=== PATIENT | female | born 1945 | race Caucasian/White ===

== ENCOUNTER 2016-09-12 14:03 | Emergency (ER) | payer MEDICARE ==
[2016-09-12 14:44] VITALS: BP 104/62
--- NOTE | 2016-09-12 16:02 | UC ---
[facility] HPI - HPI Summary HPI Summary: FOUR DAYS OF FRONT LOWER DENTAL PAIN. NO FEVER. - History of Current Complaint Chief Complaint: UCDentalProblem Stated Complaint: DENTAL PAIN Time Seen by Provider: 09/12/16 14:49 Hx Obtained From: Patient Hx Last Menstrual Period: NA Onset/Duration: Gradual Onset, Lasting Days, Still Present Severity: Mild Pain Intensity: 4 Pain Scale Used: 0-10 Numeric Aggravating: Chewing Alleviating: Nothing Related History: Previous Dental Care on Same Tooth - DENTURES - Allergies/Home Medications Allergies/Adverse Reactions: Allergies Allergy/AdvReac Type Severity Reaction Status Date / Time Codeine Allergy Unknown Verified 03/31/13 10:17 Reaction Details Sulfa Antibiotics Allergy Unknown Verified 03/31/13 10:17 Reaction Details PMH/Surg Hx/FS Hx/Imm Hx Previously Healthy: Yes Endocrine History Of: Reports: Diabetes - TYPE 2, Thyroid Disease - HYPOTHYROID Cardiovascular History Of: Denies: Hypertension, Pacemaker/ICD GI/ History Of: Comment Only: 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 [place]ALLBLAD[place], , 1989 CAT[place]ACT[place]. [place]ST[place]CTOMY, , [place]. LEFT WRIST, 1979. VERICOSE VEIN STRIPPING AUG 2013. LEFT BREAST CYST, . CARPAL TUNNEL [place], 1999. LEFT KNEE, 1999, [facility] - Family History Known Family History: Positive: Diabetes, Other - depression - Social History Occupation: Retired Lives: With Family Alcohol Use: Occasionally Substance Use Type: None Smoking Status (MU): Former Smoker Review of Systems Constitutional: Negative Skin: Negative Eyes: Negative ENT: Dental Pain Respiratory: Negative Cardiovascular: Negative Gastrointestinal: Negative Genitourinary: Negative Motor: Negative Neurovascular: Negative Musculoskeletal: Negative Neurological: Negative Psychological: Negative All Other Systems Reviewed And Are Negative: Yes Physical Exam Triage Information Reviewed: Yes Completion Of Physical Exam Limited Due To: Extremis Appearance: No Pain Distress, Well-Nourished Vital Signs: Initial Vital Signs Temp 97.8 F 09/12/16 14:42 Pulse 99 09/12/16 14:42 Resp 16 09/12/16 14:42 BP 104/62 09/12/16 14:42 Pulse Ox 95 09/12/16 14:42 Vital Signs Reviewed: Yes Eye Exam: Normal Eyes: Positive: Conjunctiva Clear ENT Exam: Normal ENT: Positive: Normal ENT inspection, Hearing grossly normal, Pharynx normal, TMs normal Dental: Positive: Abscess @ - #24,25 Neck exam: Normal Neck: Positive: Supple, Nontender, No Lymphadenopathy Respiratory Exam: Normal Respiratory: Positive: Chest non-tender, Lungs clear, Normal breath sounds, No respiratory distress, No accessory muscle use Cardiovascular Exam: Normal Cardiovascular: Positive: RRR, No Murmur, Pulses Normal Abdominal Exam: Normal Abdomen Description: Positive: Nontender, No Organomegaly Musculoskeletal Exam: Normal Musculoskeletal: Positive: Strength Intact Neurological Exam: Normal Psychological Exam: Normal Skin Exam: Normal Dental Complaint Course/Dx - Differential Dx/Diagnosis Differential Diagnosis/Dx: Dental Abscess, Dental Caries, Odontogenic Pain Provider Diagnoses: DENTAL ABSCESS #24,25 Discharge - Discharge Plan Condition: Stable Disposition: HOME Prescriptions: Amoxicillin/Clavulanate TAB* [Augmentin TAB 875*] 875 mg PO BID #20 tab Patient Education Materials: Dental Abscess (ED) Referrals: Moses Nova MD [Primary Care Provider] - Additional Instructions: DENTAL REFERRAL SHEET GIVEN Images Dental: 1 - TENDER AND SWOLLEN HERE
== END 2016-09-12 15:11 | disposition home or self-care (01) ==
LOC: UCEAST 14:03
DX: K04.7 Periapical abscess without sinus (principal); Z88.5 Allergy status to narcotic agent; Z88.2 Allergy status to sulfonamides; Z87.891 Personal history of nicotine dependence; Q60.0 Renal agenesis, unilateral
CPT/HCPCS: 99212; G0463

== ENCOUNTER 2016-11-16 15:43 | Emergency (ER) | payer MEDICARE ==
[2016-11-16 16:05] VITALS: BP 116/88
--- NOTE | 2016-11-16 17:11 | UC ---
Abdominal Pain Female HPI - HPI Summary HPI Summary: Had mild diarrhea 3-4 times per day starting 2 weeks ago, much worse 4 days ago with lots of cramping and nausea s vomiting. Took amoxicillin and then PCN for a toothache that ended 2 days ago, says that she started abx prior to diarrhea. Has not eaten today but is drinking fluids well. Today when she tries to urinate "I only get dribbles." Has 1 kidney. Remarked on her very sweaty appearance, says she has had excessive sweating for years but "no one has said anything to me about it." - History of Current Complaint Chief Complaint: UCAbdominalPain Stated Complaint: DIARRHEA,ABD PAIN Time Seen by Provider: 11/16/16 16:50 Hx Obtained From: Patient Hx Last Menstrual Period: NA ?: No Onset/Duration: Gradual Onset, Lasting Weeks Timing: Constant Severity Initially: Mild Severity Currently: Moderate Location: Epigastric Radiates: No Character: Burning, Cramping Aggravating Factor(s): Food, Movement Alleviating Factor(s): Nothing Associated Signs and Symptoms: Positive: Decreased Appetite, Nausea, Diarrhea. Negative: Urinary Symptoms, Vomiting Allergies/Adverse Reactions: Allergies Allergy/AdvReac Type Severity Reaction Status Date / Time Codeine Allergy Unknown Verified 11/16/16 15:58 Reaction Details Sulfa Antibiotics Allergy Unknown Verified 11/16/16 15:58 Reaction Details Home Medications: Home Medications Digoxin [Digitek] 0.375 mg PO DAILY 11/16/16 [History Confirmed 11/16/16] Magnesium 250 mg PO BID 11/16/16 [History Confirmed 11/16/16] Metoprolol Succinate [Toprol Xl] 50 mg PO DAILY 11/16/16 [History Confirmed ] Mirtazapine [Remeron] 15 mg PO BEDTIME 11/16/16 [History Confirmed 11/16/16] Nortriptyline CAP* [Pamelor CAP*] 10 mg PO BEDTIME 11/16/16 [History Confirmed 11/16/16] PMH/Surg Hx/FS Hx/Imm Hx Endocrine History Of: Reports: Diabetes - TYPE 2, Thyroid Disease - HYPOTHYROID Cardiovascular History Of: Denies: Hypertension, Pacemaker/ICD GI/ History Of: Comment Only: 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 [place]ALLBLADDER, [place], 1989 CATARACT[place]. HYSTERECTOMY, , [place]. LEFT WRIST, 1979. neuropathy. VERICOSE VEIN STRIPPING AUG 2013. LEFT BREAST CYST, . CARPAL TUNNEL [facility], 1999. LEFT KNEE, 1999, [facility] - Family History Known Family History: Positive: Diabetes, Other - depression - Social History Occupation: Retired Alcohol Use: Occasionally Substance Use Type: None Smoking Status (MU): Former Smoker - Immunization History Most Recent Influenza Vaccination: none Review of Systems Constitutional: Negative Skin: Negative Eyes: Negative ENT: Negative Respiratory: Negative Cardiovascular: Negative Gastrointestinal: Abdominal Pain, Diarrhea Genitourinary: Negative Motor: Negative Neurovascular: Negative Musculoskeletal: Negative Neurological: Negative Psychological: Negative All Other Systems Reviewed And Are Negative: Yes Physical Exam Triage Information Reviewed: Yes Appearance: Obese, Other: - sweating profusely Vital Signs: Initial Vital Signs Temp 95.8 F 11/16/16 16:00 Pulse 99 11/16/16 16:00 Resp 16 11/16/16 16:00 BP 116/88 11/16/16 16:00 Pulse Ox 99 11/16/16 16:00 Vital Signs Reviewed: Yes Eye Exam: Normal Eyes: Positive: Conjunctiva Clear ENT: Positive: Hearing grossly normal, Pharynx normal, TMs normal. Negative: Nasal drainage, Tonsillar swelling, Tonsillar exudate Dental Exam: Other - mostly edentulous Respiratory Exam: Normal Respiratory: Positive: Chest non-tender, Lungs clear, Normal breath sounds, No respiratory distress, No accessory muscle use, Decreased breath sounds - diffuse , suspect due to obesity and extensive smoking history Cardiovascular: Positive: No Murmur, Tachycardia - high 90s Abdomen Description: Negative: Nontender - epgastric tenderness, CVA Tenderness (R), CVA Tenderness (L) Musculoskeletal: Positive: ROM Intact Neurological: Positive: Alert Psychological Exam: Normal Skin Exam: Other - sweaty Abd Pain Female Course/Dx - Differential Dx/Diagnosis Provider Diagnoses: Antibiotic associated diarrhea. elevated blood pressure due to discomfort Discharge - Discharge Plan Condition: Stable Disposition: HOME Patient Education Materials: Acute Diarrhea (ED) Referrals: Moses Nova MD [Primary Care Provider] - 5 Days Additional Instructions: Please return the stool samples as soon as possible so we can test them. Drink plenty of fluids. If you develop bloody stool, severe pain, fever, or fainting, please go to the emergency department.
== END 2016-11-16 18:02 | disposition home or self-care (01) ==
LOC: UCEAST 15:43
DX: K52.1 Toxic gastroenteritis and colitis (principal); T36.0X5A Adverse effect of penicillins, initial encounter; Y92.9 Unspecified place or not applicable; R03.0 Elevated blood-pressure reading, without diagnosis of hypertension; E11.9 Type 2 diabetes mellitus without complications; E03.9 Hypothyroidism, unspecified; F41.8 Other specified anxiety disorders; Z90.49 Acquired absence of other specified parts of digestive tract; Z98.49 Cataract extraction status, unspecified eye; Z88.5 Allergy status to narcotic agent; Z88.2 Allergy status to sulfonamides; Z87.891 Personal history of nicotine dependence
CPT/HCPCS: 81003; 99212; G0463

== ENCOUNTER 2018-07-01 18:05 | Emergency (ER) | payer MEDICARE ==
--- NOTE | 2018-07-01 19:40 | ED ---
Dizziness - HPI Summary HPI Summary: Patient is a 73 y/o F presenting to ED with complaints of dizziness, shaking of UE, N/V and generally feeling unwell. She states that she had felt "funny in the head" yesterday as well as nauseous. Dizziness and vomiting onset today. Dizziness is described as constant. UE shaking is reported to have been present for a year. Patient reports movement aggravates Sx, staying still alleviates Sx. Patient reports that she took x2 meclizine 25 mg today with no improvement. No fever reported. She reports one similar episode a year ago, states that Sx lasted a day. PMHx of afib, patient is not on coumadin, takes ASA. PMHx of diabetes, sleep apnea for which patient has cpap, thyroid problems, arthritis, and neuropathy. No PMHx of CHF reported. Patient is on digoxin. On triage, pain is denied, it is reported that patient took x3 meclizine instead of 2, and movement of head in any direction and standing aggravates Sx. Home medications and allergies are reviewed. - History Of Current Complaint Chief Complaint: EDDizziness Stated Complaint: DIZZY Time Seen by Provider: 07/01/18 18:12 Hx Obtained From: Patient Onset/Duration: Still Present Timing: Hours - dizziness and vomiting Severity Currently: None - pain denied Character: Dizzy Aggravating Factor(s): Change In Head Position, Other - standing Alleviating Factor(s): Other - staying still Associated Signs And Symptoms: Positive: Nausea, Vomiting, Other: - shaking of BUE, generally feeling unwell. Negative: Fever - Allergies/Home Medications Allergies/Adverse Reactions: Allergies Allergy/AdvReac Type Severity Reaction Status Date / Time codeine Allergy Abdominal Verified 07/01/18 18:15 Pain Sulfa (Sulfonamide Allergy Abdominal Verified 07/01/18 18:15 Antibiotics) Pain PMH/Surg Hx/FS Hx/Imm Hx Endocrine/Hematology History: Reports: Hx Diabetes - TYPE 2, Hx Thyroid Disease - HYPOTHYROID Cardiovascular History: Reports: Hx Atrial Fibrillation, Hx Peripheral Vascular Disease - VERICOSE VEINS Denies: Hx Congestive Heart Failure, Hx Hypertension, Hx Pacemaker/ICD Respiratory History: Denies: Other Respiratory Problems/Disorders GI History: Reports: Hx Gastroesophageal Reflux Disease History: Denies: Hx Dialysis Comment Only: Hx 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 [place]DER, [place], 1989 CAT[place]ACT[place]. [place]STERECTOMY, , [place]. LEFT WRIST, 1979. neuropathy. VERICOSE VEIN STRIPPING AUG 2013. LEFT BREAST CYST, . CARPAL TUNNEL [facility], 1999. LEFT KNEE, 1999, [facility] Hx Anesthesia Reactions: No - Immunization History Date of Tetanus Vaccine: UTD Date of Influenza Vaccine: NO Infectious Disease History: No Infectious Disease History: Denies: Traveled Outside the [place] in Last 30 Days - Family History Known Family History: Positive: Diabetes, Other - depression - Social History Alcohol Use: Occasionally Substance Use Type: Reports: None Smoking Status (MU): Former Smoker Review of Systems Positive: Other - POSITIVE - FEELING UNWELL . Negative: Fever Positive: Vomiting, Nausea Neurological: Other - POSITIVE - DIZZINESS, SHAKING IN BUE All Other Systems Reviewed And Are Negative: Yes Physical Exam - Summary Physical Exam Summary: VITAL SIGNS: Reviewed. GENERAL: Patient is a well-developed and nourished female who is lying comfortable in the stretcher. Patient is not in any acute respiratory distress. HEAD AND FACE: No signs of trauma. No ecchymosis, hematomas or skull depressions. No sinus tenderness. EYES: PERRLA, EOMI x 2, No injected conjunctiva, no nystagmus. EARS: Hearing grossly intact. Ear canals and tympanic membranes are within normal limits. MOUTH: Oropharynx within normal limits. NECK: Supple, trachea is midline, no adenopathy, no JVD, no carotid bruit, no c- spine tenderness, neck with full ROM. CHEST: Symmetric, no tenderness at palpation LUNGS: Clear to auscultation bilaterally. No wheezing or crackles. CVS: Regular rate and rhythm, S1 and S2 present, no murmurs or gallops appreciated. ABDOMEN: Soft, non-tender. No signs of distention. No rebound no guarding, and no masses palpated. Bowel sounds are normal. EXTREMITIES: FROM in all major joints, no edema, no cyanosis or clubbing. Mild tremors of outstretched hands which is chronic NEURO: Alert and oriented x 3. No acute neurological deficits. Speech is normal and follows commands. SKIN: Dry and warm Triage Information Reviewed: Yes Vital Signs On Initial Exam: Initial Vitals Temp Pulse Resp BP Pulse Ox 98.5 F 73 20 145/103 99 07/01/18 18:12 07/01/18 18:12 07/01/18 18:12 07/01/18 18:12 07/01/18 18:12 Vital Signs Reviewed: Yes Diagnostics - Vital Signs Vital Signs Temp Pulse Resp BP Pulse Ox 07/01/18 18:12 98.5 F 73 20 145/103 99 - Laboratory Result Diagrams: 07/01/18 19:42 07/01/18 19:42 Lab Statement: Any lab studies that have been ordered have been reviewed, and results considered in the medical decision making process. - EKG 2011 Cardiac Rate: NL - rate of 72 bpm EKG Rhythm: Sinus Rhythm Summary of EKG Findings: EKG showed sinus rhythm with rate of 72 BPM with poor R wave progression Re-Evaluation - Re-Evaluation First Eval Re-Evaluation Time: 19:49 Comment: Patient was ambulated around the ED, she reports spells of dizziness every ten feet. Spells lasted for a few seconds. Patient was given antivert 25 mg PO ED ONCE and Ativan 1 mg IV PUSH ED ONCE ONE. Second Eval Re-Evaluation Time: 21:13 Change: Improved Comment: Patient reports improvement in Sx and ambulated with no complications, discussed results of labs and tests. Patient will be discharged to home, patient is agreeable with this plan. Dizzy Course/Dx - Course Course Of Treatment: Patient is a 73 y/o F presenting to ED with complaints of dizziness, shaking of UE, N/V and generally feeling unwell. She states that she had felt "funny in the head" yesterday as well as nauseous. Dizziness and vomiting onset today. Dizziness is described as constant. UE shaking is reported to have been present for a year. Patient reports movement aggravates Sx , staying still alleviates Sx. Patient reports that she took x2 meclizine 25 mg today with no improvement. No fever reported. She reports one similar episode a year ago, states that Sx lasted a day. PMHx of afib, patient is not on coumadin , takes ASA. PMHx of diabetes, sleep apnea for which patient has cpap, thyroid problems, arthritis, and neuropathy. No PMHx of CHF reported. Patient is on digoxin. On triage, pain is denied, it is reported that patient took x3 meclizine instead of 2. On physical exam, mild tremors of outstretched UE, but patient reports this is chronic. EKG showed sinus rhythm with rate of 72 BPM with poor R wave progression. Patient was ambulated around the ED, she reports spells of dizziness every ten feet. Spells lasted for a few seconds. Patient was given antivert 25 mg PO ED ONCE and Ativan 1 mg IV PUSH ED ONCE ONE. Abnormal labs included WBC 15.5, RBC 5.66, Hct 48, RDW 16, absolute neuts 11.3, absolute monos 1, glucose 115. Digoxin was 0.9. . UA showed cloudy urine, blood 1+, leukocyte esterase 3+, WBC 3+, RBC trace, squamous peith cells present , bacteria 1+. Patient was given Levaquin 500 mg PO ED ONCE ONE. Patient reports improvement in Sx and ambulated with no complications, discussed results of labs and tests. Patient will be discharged to home, patient is agreeable with this plan. - Diagnoses Provider Diagnoses: Benign positional vertigo, UTI (urinary tract infection) Discharge - Sign-Out/Discharge Documenting (check all that apply): Patient Departure - discharge - Discharge Plan Condition: Stable Disposition: HOME Prescriptions: Levofloxacin TAB* [Levaquin TAB*] 500 mg PO DAILY #7 tab Patient Education Materials: Benign Paroxysmal Positional Vertigo (ED), Urinary Tract Infection in Older Adults (ED) Referrals: Moses Nova MD [Primary Care Provider] - 2 Days Additional Instructions: RETURN TO THE EMERGENCY DEPARTMENT FOR CHANGING OR WORSENING SYMPTOMS. FOLLOW UP WITH PRIMARY CARE PHYSICIAN IN 1-2 DAYS. - Attestation Statements Document Initiated by Edwigeibe: Yes Documenting Scribe: PERFECTO AZUL Provider For Whom Silvia is Documenting (Include Credential): MD Edwige BROWNibe Attestation: PERFECTO Perdue , scribed for DADA HUANG MD on 07/01/18 at 2123. Status of Scribe Document: Ready
[2018-07-01] MEDS ORDERED: Meclizine TAB* 12.5 MG PO ONE (19:52)
[2018-07-01] MEDS ORDERED: LORazepam INJ* 2 MG/ML 1 ML VIAL IV PUSH ONE (19:53)
[2018-07-01 19:55] LABS: ABS Basophils 0.1 10^3/ul (0-0.2); ABS Eosinophils 0.3 10^3/ul (0-0.6); ABS Lymphocytes 2.9 10^3/ul (1.0-4.8); ABS Neutrophils 11.3 10^3/ul (1.5-7.7); ABS Nucleated RBC 0 10^3/ul; Hematocrit 48 % (35-47); Hemoglobin 15.6 g/dl (12.0-16.0); Lymphocyte % 18.5 %; Mean Corpuscular HGB Conc 33 g/dl (31-36); Mean Corpuscular Hemoglobin 28 pg (27-31); Mean Corpuscular Volume 85 fL (80-97); Mean Platelet Volume 10.3 fL (7.4-10.4); Nucleated Red Blood Cells % 0; Platelet Count 229 10^3/ul (150-450); Red Blood Count 5.66 10^6/ul (4.00-5.40); Red Cell Distribution Width 16 % (10.5-15); White Blood Count 15.5 10^3/ul (3.5-10.8)
[2018-07-01 20:05] LABS: INR 0.96 (0.77-1.02)
[2018-07-01 20:11] LABS: EGFR Non-African American 85.1 (>60)
[2018-07-01 21:14] LABS: Urine Appearance Cloudy; Urine Blood 1+ (Negative); Urine Color Yellow; Urine Ketones Negative (Negative); Urine Protein Negative (Negative); Urine Red Blood Cell Trace(0-2/hpf) (Absent); Urine Specific Gravity 1.008 (1.010-1.030); Urine Urobilinogen Negative (Negative); Urine White Blood Cell 3+(>20/hpf) (Absent)
[2018-07-01] MEDS ORDERED: Levofloxacin TAB* 500 MG PO ONE (21:16)
[2018-07-01 21:51] VITALS: BP 132/57
== END 2018-07-01 21:51 | disposition home or self-care (01) ==
LOC: ED 18:05
DX: H81.10 Benign paroxysmal vertigo, unspecified ear (principal); N39.0 Urinary tract infection, site not specified; R11.2 Nausea with vomiting, unspecified; I48.91 Unspecified atrial fibrillation; Z79.82 Long term (current) use of aspirin; Z88.5 Allergy status to narcotic agent; Z88.2 Allergy status to sulfonamides
CPT/HCPCS: 36415; 80053; 80162; 81003; 81015; 83735; 85025; 85610; 85730; 87086; 93005; 96374; 99283; A9270-GY; J2060

== ENCOUNTER 2019-11-14 12:15 | Emergency (ER) | payer MEDICARE ==
--- NOTE | 2019-11-14 12:31 | ED ---
Abdominal Pain/Female - HPI Summary HPI Summary: Patient is a 74 y/o F presenting to the ED via EMS for a chief complaint of rectal bleeding and diarrhea. Patient also reports abdominal pain described as a cramping sensation. She notes having rectal bleeding in the past that is described as a burning sensation, but states her current symptoms are different. She denies straining when having bowel movements. Patient denies fever. No aggravating or alleviating factors are reported. She notes isolating herself at home where she lives alone, and denies any recent travel or positive sick contact with someone that is COVID-19 positive. In the past, patient has seen a GI and had colonoscopies with unremarkable findings. Last colonoscopy was on 02/18/2019. She notes taking 325 mg aspirin daily and taking meloxicam. PMHx is significant for diabetes mellitus and COPD. - History of Current Complaint Chief Complaint: EDGIBleed Stated Complaint: GI BLEED Hx Obtained From: Patient Hx Last Menstrual Period: NA Onset/Duration: Sudden Onset, Still Present Timing: Constant Severity Initially: Moderate Severity Currently: Moderate Pain Scale Used: 0-10 Numeric Location: Diffuse Radiates: No Aggravating Factor(s): Nothing Alleviating Factor(s): Nothing Associated Signs and Symptoms: Positive: Blood in Stool, Diarrhea. Negative: Fever Allergies/Adverse Reactions: Allergies Allergy/AdvReac Type Severity Reaction Status Date / Time codeine Allergy Abdominal Verified 11/14/19 12:26 Pain Sulfa (Sulfonamide Allergy Abdominal Verified 11/14/19 12:26 Antibiotics) Pain Home Medications: Home Medications Aspirin [Aspirin Dr] 325 mg PO QAM 01/06/13 [History Confirmed 11/14/19] Cholecalciferol TAB* [Vitamin D TAB*] 2,000 units PO QAM 01/06/13 [History Confirmed 11/14/19] Furosemide TAB* [Lasix TAB*] 40 mg PO QAM 01/06/13 [History Confirmed 11/14/19] Levothyroxine TAB* [Synthroid TAB*] 137 mcg PO QAM 01/06/13 [History Confirmed 11/14/19] Digoxin [Digitek] 0.25 mg PO QPM 11/16/16 [History Confirmed 11/14/19] Metoprolol Succinate [Toprol Xl] 50 mg PO QPM 11/16/16 [History Confirmed ] Mirtazapine [Remeron] 50 mg PO BEDTIME 11/16/16 [History Confirmed 11/14/19] DULoxetine CAP* [Cymbalta CAP*] 90 mg PO QPM 04/17/18 [History Confirmed ] Nitroglycerin [Nitrostat] 0.4 mg SL DAILY PRN 04/17/18 [History Confirmed ] Oxybutynin TAB* [Ditropan TAB*] 5 mg PO BID 04/24/18 [History Confirmed 11/14/19 ] Calcium Carbonate TAB* 1,200 mg PO QAM 08/14/18 [History Confirmed 11/14/19] Magnesium Oxide [Magnesium] 500 mg PO DAILY 08/14/18 [History Confirmed 11/14/19 ] Meclizine TAB* [Antivert 12.5 TAB*] 12.5 mg PO TID PRN 08/14/18 [History Confirmed 11/14/19] Meloxicam [Mobic] 7.5 mg PO BID 08/14/18 [History Confirmed 11/14/19] Metformin HCl 1,000 mg PO QPM 08/14/18 [History Confirmed 11/14/19] Metformin HCl 1,500 mg PO QAM 08/14/18 [History Confirmed 11/14/19] Albuterol HFA INHALER* [Ventolin HFA Inhaler*] 2 puff INH Q4H PRN 11/14/19 [ History Confirmed 11/14/19] PMH/Surg Hx/FS Hx/Imm Hx Previously Healthy: Yes Endocrine/Hematology History: Reports: Hx Diabetes - TYPE 2, Hx Thyroid Disease - HYPOTHYROID Cardiovascular History: Reports: Hx Atrial Fibrillation, Hx Peripheral Vascular Disease - VERICOSE VEINS, Other Cardiovascular Problems/Disorders - a fib Denies: Hx Congestive Heart Failure, Hx Hypertension, Hx Pacemaker/ICD Respiratory History: Denies: Other Respiratory Problems/Disorders GI History: Reports: Hx Gastroesophageal Reflux Disease, Hx Irritable Bowel Denies: Other GI Disorders History: Reports: Hx Kidney Stones - long ago Denies: Hx Dialysis, Other Problems/Disorders Comment Only: Hx Renal Disease - 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 Musculoskeletal History: Reports: Hx Arthritis - ALL OVER, Hx Bursitis Denies: Hx Osteoporosis Sensory History: Reports: Hx Cataracts, Hx Glaucoma - borderline Denies: Hx Contacts or Glasses, Hx Hearing Aid Opthamlomology History: Reports: Hx Cataracts, Hx Glaucoma - borderline Denies: Hx Contacts or Glasses Neurological History: Reports: Hx Migraine, Hx Nerve Disease - neuropathy Denies: Other Neuro Impairments/Disorders Psychiatric History: Reports: Hx Anxiety - 10/2012, Hx Depression Denies: Hx Panic Disorder - Cancer History Hx Chemotherapy: No Hx Radiation Therapy: No - Surgical History Surgical History: Yes Surgery Procedure, Year, and Place: APPENDECTOMY, AGE 24 , [place] Rt SHOULDER - 2002. GALLBLADDER, [place], 1989 CATARACTS. HYSTERECTOMY, , [place] [place]. LEFT WRIST, 1979. neuropathy. VERICOSE VEIN STRIPPING AUG 2013. LEFT BREAST CYST, . CARPAL TUNNEL [place], 1999. LEFT KNEE, 1999, [facility] Hx Anesthesia Reactions: No - Immunization History Date of Tetanus Vaccine: UTD Date of Influenza Vaccine: NO Infectious Disease History: No Infectious Disease History: Denies: Traveled Outside the [place] in Last 30 Days - Family History Known Family History: Positive: Diabetes, Other - depression - Social History Occupation: Retired Lives: Alone Alcohol Use: Occasionally Alcohol Amount: holidays Hx Substance Use: No Substance Use Type: Reports: None Hx Tobacco Use: Yes Smoking Status (MU): Former Smoker Amount Used/How Often: pack a day for 50 yrs Review of Systems Negative: Fever Positive: Abdominal Pain, Diarrhea, Other - Positive rectal bleeding All Other Systems Reviewed And Are Negative: Yes Physical Exam - Summary Physical Exam Summary: VITAL SIGNS: Reviewed. GENERAL: Patient is a well-developed and obese FEMALE who is lying comfortable in the stretcher. Patient is not in any acute respiratory distress. HEAD AND FACE: No signs of trauma. No ecchymosis, hematomas or skull depressions. No sinus tenderness. EYES: PERRLA, EOMI x 2, No injected conjunctiva, no nystagmus. EARS: Hearing grossly intact. Ear canals and tympanic membranes are within normal limits. MOUTH: Oropharynx within normal limits. NECK: Supple, trachea is midline, no adenopathy, no JVD, no carotid bruit, no c- spine tenderness, neck with full ROM. CHEST: Symmetric, no tenderness at palpation. LUNGS: Clear to auscultation bilaterally. No wheezing or crackles. CVS: Regular rate and rhythm, S1 and S2 present, no murmurs or gallops appreciated. ABDOMEN: Soft, non-tender. No signs of distention. No rebound, no guarding, and no masses palpated. Bowel sounds are normal. RECTAL: normal sphincter tone, no gross blood or melena. EXTREMITIES: FROM in all major joints, no edema, no cyanosis or clubbing. NEURO: Alert and oriented x 3. No acute neurological deficits. Speech is normal and follows commands. SKIN: Dry and warm. Triage Information Reviewed: Yes Vital Signs Reviewed: Yes Procedures - Sedation Patient Received Moderate/Deep Sedation with Procedure: No Diagnostics - Laboratory Result Diagrams: 11/14/19 13:07 11/14/19 13:07 Lab Statement: Any lab studies that have been ordered have been reviewed, and results considered in the medical decision making process. - Radiology Abdomen X-ray Radiology Interpretation Completed By: Radiologist Summary of Radiographic Findings: Abdomen X-ray IMPRESSION: NONSPECIFIC BOWEL GAS PATTERN. Reviewed by Dr. Causey. - EKG 12:57 Cardiac Rate: NL - 77 BPM EKG Rhythm: Sinus Rhythm ST Segment: Normal Ectopy: None Summary of EKG Findings: EKG at 12:57 shows normal sinus rhythm with 77 BPM, no ST elevations. Reviewed and interpreted by Dr. Causey. Abdominal Pain Fem Course/Dx - Course Course Of Treatment: Patient is a 74 y/o F presenting to the ED via EMS for a chief complaint of rectal bleeding and diarrhea. Patient also reports abdominal pain described as a cramping sensation. She notes having rectal bleeding in the past that is described as a burning sensation, but states her current symptoms are different. She denies straining when having bowel movements. Patient denies fever. No aggravating or alleviating factors are reported. She notes isolating herself at home where she lives alone, and denies any recent travel or positive sick contact with someone that is COVID-19 positive. In the past, patient has seen a GI and had colonoscopies with unremarkable findings. Last colonoscopy was on 02/18/2019. She notes taking 325 mg aspirin daily and taking meloxicam. PMHx is significant for diabetes mellitus and COPD. . In the ED course the patient was placed in a accounting officer, IV access was obtained, IV fluids started. Past medical records reviewed. Blood test w/o any significant abnormality except for glucose 135, lactic acid of 3.2, CRP of 9.31. The patient doesnt have any source of infection except for the chronic diarrhea. However the patient has this diarrhea for approximately 2 years. Guaiac is negative. H&H is completely normal. I discussed all the findings and test results with the patient. Patient was instructed to return to the emergency room immediately if any of the symptoms return or worsen. Plan of care was discussed with the patient who understands and agrees. All questions were answered at patient satisfaction. There were no further complaints or concerns. Lung exam before discharge: CTA B/L. Good air exchange. No wheezing or crackles heard. CVS: S1 and S2 present. No murmurs appreciated. Patient is alert and oriented x 3. Patient is hemodynamically stable. Patient will be discharged home to follow up with PCP in the next 2-3 days. - Diagnoses Provider Diagnoses: GI (gastrointestinal bleed) - Critical Care Time Critical Care Statement: Critical care time is provided exclusive of any time spent performing procedures. Discharge ED - Sign-Out/Discharge Documenting (check all that apply): Patient Departure - Discharge - Discharge Plan Condition: Stable Disposition: HOME Patient Education Materials: Gastrointestinal Bleeding (ED) Referrals: Moses Nova MD [Primary Care Provider] - Siva Rust MD [Medical Doctor] - Additional Instructions: RETURN TO THE EMERGENCY DEPARTMENT FOR CHANGING OR WORSENING SYMPTOMS. Follow up with your primary care physician in 3 days and follow up with a waste collector. - Billing Disposition and Condition Condition: STABLE Disposition: Home - Attestation Statements Document Initiated by Silvia: Yes Documenting Scribe: Chio Evans Provider For Whom Silvia is Documenting (Include Credential): Elijah Causey MD Scribe Attestation: Chio Perdue scribed for Elijah Causey MD on 11/15/19 at 1247. Scribe Documentation Reviewed: Yes Provider Attestation: The documentation as recorded by the Chio [email or web address] accurately reflects the service I personally performed and the decisions made by me, Elijah Causey MD Status of Scribe Document: Viewed
[2019-11-14 13:36] LABS: ABS Basophils 0.1 10^3/ul (0-0.2); ABS Eosinophils 0.2 10^3/ul (0-0.6); ABS Lymphocytes 2.6 10^3/ul (1.0-4.8); ABS Neutrophils 6.8 10^3/ul (1.5-7.7); Eosinophil % 2.3 %; Hematocrit 42 % (35-47); Hemoglobin 14.3 g/dL (12.0-16.0); Lymphocyte % 24.2 %; Mean Corpuscular HGB Conc 34 g/dL (31-36); Mean Corpuscular Hemoglobin 29 pg (27-31); Mean Corpuscular Volume 86 fL (80-97); Mean Platelet Volume 10.9 fL (7.4-10.4); Platelet Count 174 10^3/uL (150-450); Red Blood Count 4.92 10^6 /uL (3.70-4.87); Red Cell Distribution Width 15 % (10-15); White Blood Count 10.8 10^3/uL (3.5-10.8)
[2019-11-14 13:53] LABS: Albumin 4.1 g/dL (3.2-5.2); Albumin/Globulin Ratio 1.5 (1-3); BUN/Creatinine Ratio 19.7 (8-20); C Reactive Protein 9.31 mg/L (<8.01); EGFR African American 116.3 (>60); EGFR Non-African American 96.1 (>60); Globulin 2.8 g/dL (2-4); Potassium 4.1 mmol/L (3.5-5.0); Total Bilirubin 0.2 mg/dL (0.2-1.0); Total Protein 6.9 g/dL (6.4-8.9)
[2019-11-14 14:06] VITALS: BP 125/81
== END 2019-11-14 14:25 | disposition home or self-care (01) ==
LOC: ED 12:15
DX: K92.2 Gastrointestinal hemorrhage, unspecified (principal); R19.7 Diarrhea, unspecified; E11.9 Type 2 diabetes mellitus without complications; E03.9 Hypothyroidism, unspecified; K21.9 Gastro-esophageal reflux disease without esophagitis; Z88.6 Allergy status to analgesic agent; Z79.82 Long term (current) use of aspirin; Z79.890 Hormone replacement therapy; Z87.442 Personal history of urinary calculi; Z87.891 Personal history of nicotine dependence; F41.9 Anxiety disorder, unspecified
CPT/HCPCS: 36415; 74019; 80053; 82140; 82272; 82550; 83605; 83690; 83880; 85025; 85730; 86140; 93005; 99282